=== PATIENT | male | born 1945 | race Two or more races ===

== ENCOUNTER 2017-09-08 11:56 | Emergency (ER) | payer MEDICARE ==
[~2017-09-08 11:56] MED LIST: ACE3 PO; ACY200 PO; AMLO-96 PO; ATOR40TA24 PO; ATOR40TA69 PO; CARV25TA78 PO; CHOL500025 PO; CODE118S5 PO; GLIP-152 PO; HCTZ25 PO; HYDR12.561 PO; IRBE75TA4 PO; KET10 PO; LOR5/325 PO; LOSA100T67 PO; LOSA25TA46 PO; MELO-207 PO; MET500 PO; PER PO; ROS10 PO; ROS4 PO; SIMV-42 PO; TRIA-20 PO; [UNRECOGNIZED DRUG - CODE] IM
--- NOTE | 2017-09-08 12:03 | ER Report ---
History and Physical Time Seen By MD: 12:03 HPI/ROS CHIEF COMPLAINT: Left-sided abdominal pain HISTORY OF PRESENT ILLNESS: This is a 72-year-old male who presents to the emergency department for left-sided abdominal pain. Patient states that about 15 -20 minutes prior to arrival he developed sudden onset of left-sided abdominal pain which, some shortness of breath, diaphoresis. Patient describes the pain as a "burning" sort of pain. Patient also states that now he's developed a little bit of a headache, nausea no vomiting. Patient denies any strenuous activity, patient denies having any pain like this before. The pain also wraps around to the left flank. Patient denies any recent aches, chills, chest pain, rashes. Patient does state that he is currently taking prednisone for a muscle strain. REVIEW OF SYSTEMS: Constitutional: No fever, no chills. Eyes: No discharge. ENT: No sore throat. Cardiovascular: As above. Respiratory: As above. Gastrointestinal: As above. Genitourinary: No hematuria. Musculoskeletal: No back pain. Skin: No rashes. Neurological: As above. Allergies: Coded Allergies: No Known Drug Allergies (Verified , 03/06/15) Home Meds Active Scripts Atorvastatin Calcium (LIPITOR) 40 Mg Tablet, 1 TAB PO QDAY, #90 TAB 1 Refill Prov:CAREN LEDESMA MD 07/14/15 Hydrochlorothiazide (HYDROCHLOROTHIAZIDE) 12.5 Mg Tablet, 1 TAB PO QDAY, #90 TAB 1 Refill Prov:CAREN LEDESMA MD 05/11/15 Reported Medications Cyanocobalamin (Vitamin B-12) (B-12) 1,000 Mcg/Ml Drops, 1000 MCG IM monthly, MCG 05/30/16 Cholecalciferol (Vitamin D3) (VITAMIN D3) 5,000 Unit Tablet, 2 TAB PO DAILY 05/23/16 Losartan Potassium (LOSARTAN POTASSIUM) 100 Mg Tablet, 1 TAB PO QDAY, TAB 04/14/15 Glipizide (GLIPIZIDE) 5 Mg Tablet, 5 MG PO DAILY 03/06/15 Carvedilol (CARVEDILOL) 25 Mg Tablet, 25 MG PO BID, #10 TAB 03/06/15 Metformin Hcl (Glucophage) 500 Mg Tab, 500 MG PO BID, 0 Refills 06/05/10 Discontinued Scripts Meloxicam (MELOXICAM) 15 Mg Tablet, 7.5 MG PO QDAY, #0 TAB Prov:CAREN LEDESMA MD 04/12/16 Past Medical/Surgical History Patient has a past medical and surgical history of hypercholesterolemia, hypertension, obstructive sleep apnea, pulmonary embolus secondary to foot surgery, cholecystectomy, arthritis, foot fracture, wears glasses, type II diabetes, colonoscopy, neck and back surgery, bilateral rotator cuff surgery, back surgery 2. Hx Smoking: Yes Smoking Status: Former Smoker Exposure to Second Hand Smoke?: No Hx Substance Use Disorder: No Hx Alcohol Use: Yes (OCC) Constitutional Vital Sign - Last 24 Hours 09/08/17 09/08/17 09/08/17 09/08/17 11:58 12:00 12:05 12:11 Temp 96.0 Pulse 49 47 Resp 20 26 B/P (MAP) 186/101 181/107 (131) 186/101 (129) Pulse Ox 99 99 O2 Delivery Room Air 09/08/17 09/08/17 09/08/17 09/08/17 12:13 12:15 12:26 12:30 Pulse 62 Resp 12 B/P (MAP) 181/90 (120) 182/75 (110) ???/??? (3615) 09/08/17 09/08/17 09/08/17 09/08/17 12:38 12:41 12:45 12:56 Pulse 58 60 Resp 28 12 B/P (MAP) 146/86 (106) 161/79 (106) Pulse Ox 92 97 09/08/17 09/08/17 09/08/17 09/08/17 13:00 13:23 13:28 13:29 Pulse 49 Resp 11 B/P (MAP) 153/78 (103) 98/49 (65) Pulse Ox 97 O2 Flow Rate 2.0 09/08/17 09/08/17 09/08/17 09/08/17 13:34 13:45 13:49 13:54 Pulse 52 50 55 Resp 11 10 16 B/P (MAP) 111/66 (81) Pulse Ox 97 98 98 09/08/17 09/08/17 09/08/17 09/08/17 14:00 14:02 14:09 14:15 Pulse 52 Resp 14 B/P (MAP) 109/67 (81) 118/72 (87) 112/70 (84) Pulse Ox 97 09/08/17 09/08/17 09/08/17 09/08/17 14:24 14:30 14:39 14:45 Pulse 53 54 Resp 16 11 B/P (MAP) 109/71 (84) 135/77 (96) Pulse Ox 98 98 09/08/17 09/08/17 09/08/17 09/08/17 14:54 15:00 15:03 15:08 Pulse 51 51 56 Resp 15 28 B/P (MAP) 113/73 (86) Pulse Ox 98 97 09/08/17 09/08/17 09/08/17 09/08/17 15:15 15:23 15:30 15:38 Pulse 53 55 Resp 10 10 B/P (MAP) 116/77 (90) 135/73 (93) Pulse Ox 97 97 09/08/17 09/08/17 09/08/17 09/08/17 15:45 15:53 16:00 16:08 Pulse 54 51 Resp 12 B/P (MAP) 121/79 (93) 133/72 (92) Pulse Ox 97 09/08/17 09/08/17 09/08/17 09/08/17 16:15 16:23 16:30 16:38 Pulse 49 ??? Resp 11 B/P (MAP) 117/87 (97) 129/74 (92) Pulse Ox 97 Intake and Output 09/08/17 09/08/17 09/09/17 14:59 22:59 06:59 Intake Total 500 ml Balance 500 ml Physical Exam General Appearance: The patient is alert, has no immediate need for airway protection and no signs of toxicity. Eyes: Pupils equal and round no pallor or injection. ENT, Mouth: Mucous membranes are moist. Respiratory: There are no retractions, lungs are clear to auscultation. Cardiovascular: Regular rate and rhythm, no murmurs, clicks or rubs. Gastrointestinal: Abdomen is soft, tenderness to the left upper quadrant, no masses, bowel sounds normal. No CVA tenderness. No abdominal bruits. No pulsations felt. Neurological: Alert and oriented 4. Moving all extremities. Following all commands. No focal neuro deficits. Cranial nerves II through XII intact. Skin: Warm and dry, no rashes. Musculoskeletal: Neck is supple non tender. Extremities are nontender, nonswollen and have full range of motion. DIFFERENTIAL DIAGNOSIS: After history and physical exam differential diagnosis was considered for chest pain including but not limited to myocardial ischemia, pericarditis pulmonary embolus, chest wall pain, pleural inflammation and pulmonary infectious causes.abdominal pain including but not limited to appendicitis, cholecystitis, gastritis and urinary tract infection. Medical Decision Making Data Points Result Diagram: 09/08/17 1210 09/08/17 1210 Laboratory Hematology Test 09/08/17 12:10 09/08/17 13:07 09/08/17 15:18 Red Blood Count 5.68 M/uL (4.00-5.60) Mean Corpuscular Volume 84.9 fL (80.0-96.0) Mean Corpuscular Hemoglobin 28.7 pg (26.0-33.0) Mean Corpuscular Hemoglobin Concent 33.8 g/dL (32.0-36.0) Red Cell Distribution Width 15.4 % (11.5-14.5) Mean Platelet Volume 7.6 fL (7.2-11.1) Neutrophils (%) (Auto) 59.0 % (39.4-72.5) Lymphocytes (%) (Auto) 31.8 % (17.6-49.6) Monocytes (%) (Auto) 8.0 % (4.1-12.4) Eosinophils (%) (Auto) 0.8 % (0.4-6.7) Basophils (%) (Auto) 0.4 % (0.3-1.4) Nucleated RBC Relative Count (auto) 0.1 /100WBC Neutrophils # (Auto) 5.5 K/uL (2.0-7.4) Lymphocytes # (Auto) 3.0 K/uL (1.3-3.6) Monocytes # (Auto) 0.7 K/uL (0.3-1.0) Eosinophils # (Auto) 0.1 K/uL (0.0-0.5) Basophils # (Auto) 0.0 K/uL (0.0-0.1) Nucleated RBC Absolute Count (auto) 0.01 K/uL D-Dimer Quantitative (PE/DVT) 0.65 ug/ml (0-0.50) Sodium Level 138 mmol/L (137-145) Potassium Level 3.9 mmol/L (3.5-5.0) Chloride Level 101 mmol/L (98-107) Carbon Dioxide Level 25 mmol/L (22-30) Blood Urea Nitrogen 27 mg/dl (9-21) Creatinine 1.40 mg/dl (0.66-1.25) Glomerular Filtration Rate Calc 50.0 Random Glucose 115 mg/dl (75-110) Calcium Level 10.0 mg/dl (8.4-10.2) Total Bilirubin 0.5 mg/dl (0.2-1.3) Aspartate Amino Transf (AST/SGOT) 17 U/L (0-35) Alanine Aminotransferase (ALT/SGPT) 19 U/L (0-56) Alkaline Phosphatase 71 U/L (0-126) Total Protein 7.5 gm/dl (6.3-8.2) Albumin 4.0 g/dl (3.5-5.0) Urine Color Yellow Urine Clarity Clear Urine pH 6.0 pH (4.8-9.5) Urine Specific [place] 1.014 Urine Protein Negative mg/dL (NEGATIVE) Urine Glucose (UA) Negative mg/dL (NEGATIVE) Urine Ketones Negative mg/dL (NEGATIVE) Urine Blood Negative (NEGATIVE) Urine Nitrite Negative (NEGATIVE) Urine Bilirubin Negative (NEGATIVE) Urine Urobilinogen Negative mg/dL (0.2-1.9) Urine Leukocyte Esterase Negative (NEGATIVE) Urine RBC None /HPF (0-2/HPF) Urine WBC <1 /HPF (0-5/HPF) Urine Squamous Epithelial Cells Few /LPF (</=FEW) Urine Bacteria Negative /HPF (NONE-FEW) Urine Mucus None /HPF (NONE-FEW) Troponin I < 0.012 ng/ml Chemistry Test 09/08/17 12:10 09/08/17 13:07 09/08/17 15:18 White Blood Count 9.3 k/uL (4.5-11.0) Red Blood Count 5.68 M/uL (4.00-5.60) Hemoglobin 16.3 g/dL (14.0-18.0) Hematocrit 48.2 % (42.0-52.0) Mean Corpuscular Volume 84.9 fL (80.0-96.0) Mean Corpuscular Hemoglobin 28.7 pg (26.0-33.0) Mean Corpuscular Hemoglobin Concent 33.8 g/dL (32.0-36.0) Red Cell Distribution Width 15.4 % (11.5-14.5) Platelet Count 241 K/uL (150-450) Mean Platelet Volume 7.6 fL (7.2-11.1) Neutrophils (%) (Auto) 59.0 % (39.4-72.5) Lymphocytes (%) (Auto) 31.8 % (17.6-49.6) Monocytes (%) (Auto) 8.0 % (4.1-12.4) Eosinophils (%) (Auto) 0.8 % (0.4-6.7) Basophils (%) (Auto) 0.4 % (0.3-1.4) Nucleated RBC Relative Count (auto) 0.1 /100WBC Neutrophils # (Auto) 5.5 K/uL (2.0-7.4) Lymphocytes # (Auto) 3.0 K/uL (1.3-3.6) Monocytes # (Auto) 0.7 K/uL (0.3-1.0) Eosinophils # (Auto) 0.1 K/uL (0.0-0.5) Basophils # (Auto) 0.0 K/uL (0.0-0.1) Nucleated RBC Absolute Count (auto) 0.01 K/uL D-Dimer Quantitative (PE/DVT) 0.65 ug/ml (0-0.50) Glomerular Filtration Rate Calc 50.0 Calcium Level 10.0 mg/dl (8.4-10.2) Total Bilirubin 0.5 mg/dl (0.2-1.3) Aspartate Amino Transf (AST/SGOT) 17 U/L (0-35) Alanine Aminotransferase (ALT/SGPT) 19 U/L (0-56) Alkaline Phosphatase 71 U/L (0-126) Total Protein 7.5 gm/dl (6.3-8.2) Albumin 4.0 g/dl (3.5-5.0) Urine Color Yellow Urine Clarity Clear Urine pH 6.0 pH (4.8-9.5) Urine Specific [place] 1.014 Urine Protein Negative mg/dL (NEGATIVE) Urine Glucose (UA) Negative mg/dL (NEGATIVE) Urine Ketones Negative mg/dL (NEGATIVE) Urine Blood Negative (NEGATIVE) Urine Nitrite Negative (NEGATIVE) Urine Bilirubin Negative (NEGATIVE) Urine Urobilinogen Negative mg/dL (0.2-1.9) Urine Leukocyte Esterase Negative (NEGATIVE) Urine RBC None /HPF (0-2/HPF) Urine WBC <1 /HPF (0-5/HPF) Urine Squamous Epithelial Cells Few /LPF (</=FEW) Urine Bacteria Negative /HPF (NONE-FEW) Urine Mucus None /HPF (NONE-FEW) Troponin I < 0.012 ng/ml Coagulation Test 09/08/17 12:10 D-Dimer Quantitative (PE/DVT) 0.65 ug/ml Urinalysis Test 09/08/17 13:07 Urine Color Yellow Urine Clarity Clear Urine pH 6.0 pH (4.8-9.5) Urine Specific [place] 1.014 Urine Protein Negative mg/dL (NEGATIVE) Urine Glucose (UA) Negative mg/dL (NEGATIVE) Urine Ketones Negative mg/dL (NEGATIVE) Urine Blood Negative (NEGATIVE) Urine Nitrite Negative (NEGATIVE) Urine Bilirubin Negative (NEGATIVE) Urine Urobilinogen Negative mg/dL (0.2-1.9) Urine Leukocyte Esterase Negative (NEGATIVE) Urine RBC None /HPF (0-2/HPF) Urine WBC <1 /HPF (0-5/HPF) Urine Squamous Epithelial Cells Few /LPF (</=FEW) Urine Bacteria Negative /HPF (NONE-FEW) Urine Mucus None /HPF (NONE-FEW) EKG/Imaging EKG Interpretation 12 lead EKG: Time of EKG 1204. Rhythm: Sinus bradycardia, ventricular rate 47 BPM. [place]: normal QRS: normal ST segments: No ST depression or elevation identified. Poor T-wave progression. Questionable U wave in V2, V3. 12 lead EKG: Time of repeat EKG 1244. Rhythm: Sinus bradycardia, ventricular rate 53 BPM. With 4 beats of unifocal PVCs. [place]: normal QRS: normal ST segments: No ST depression or elevation identified. Repeat EKG showing PVCs, patient is asymptomatic, states feeling better. junctional rhythm. 12 lead EKG: Time of EKG 1529. Rhythm: Sinus bradycardia, ventricular rate 50 BPM. [place]: normal QRS: normal ST segments: No ST depression or elevation identified. Still see a questionable U wave in V2, V3. No wide complexes noted. Imaging Location: [facility] Patient: Kp Haider : 1945 Visit/Account:[id number] Date of Sevice: 09/08/2017 Chest with lateral, 2 views. HISTORY: Chest pain, previous smoker. COMPARISON: 06/05/2010. The heart and mediastinum are unremarkable. Pulmonary vessels are unremarkable. The lungs are clear. The pleural surfaces are unremarkable. No pneumothorax. Degenerative changes are present in the spine. Surgical clips are present in the right upper abdomen. Metal hardware is present in the right shoulder and cervical spine. IMPRESSION: No evidence of acute cardiopulmonary disease. Report Dictated By: Suresh Duong MD at 09/08/2017 12:44 PM Report E-Signed By: Suresh Duong MD at 09/08/2017 12:46 PM WSN:[id number] Location: [facility] Patient: Kp Haider : 1945 Visit/Account:[id number] Date of Sevice: 09/08/2017 Chest CTA scan with contrast and computer reconstructions, and CT scan of the abdomen and pelvis with contrast. HISTORY: Shortness of breath, elevated d-dimer. COMPARISON: Chest CT scan 03/06/2015. [address] images were obtained of the chest using 100 mL intravenous Isovue-370. 3-D SLAB MIP reconstruction images were obtained of the pulmonary arteries. [address] images were obtained of the abdomen and pelvis using intravenous contrast. No oral contrast. One of the following dose optimization techniques was utilized in the performance of this exam: Automated exposure control; adjustment of the mA and/or kV according to the patient's size ; or use of an iterative reconstruction technique. Specific details can be referenced in the facility's radiology CT exam operational policy. FINDINGS: The heart is mildly enlarged. The coronary arteries are calcified. The thoracic aorta is mildly calcified. No bulky hilar or mediastinal adenopathy. The central pulmonary arteries are slightly prominent. No filling defects are identified to suggest acute pulmonary embolism. A 1.9 cm bulla is present in the lateral aspect of the right lower lung. The lungs are otherwise clear. No pleural fluid. No pneumothorax. An aberrant right subclavian artery is unchanged. The liver and spleen are normal in size. Surgical clips are present in the gallbladder fossa. A 5 mm low-density lesion probably representing a cyst or hemangioma is present in the posterior aspect of the spleen. The bile ducts are unremarkable. The pancreas is normal in size. The kidneys and adrenal glands are normal in size. No hydronephrosis. A 4.7 cm simple cyst is present in the lateral aspect of the right kidney. A 1.6 cm cyst is present in the posterior aspect of the left kidney. The abdominal aorta is calcified. Unopacified bowel loops are scattered in the abdomen and pelvis. A few diverticula are scattered in the left colon. No abnormal pericolonic fluid collections. The appendix is not well-visualized. The prostate gland is enlarged and partially calcified measuring 5.2 cm in transverse diameter. The urinary bladder is incompletely distended. Degenerative changes are present in the spine. Metal hardware is present in the right shoulder. IMPRESSION: Negative for acute pulmonary embolism. Aortic and coronary atherosclerosis. Aberrant right subclavian artery. Mild cardiomegaly. Absent gallbladder. Minimal colonic diverticulosis. 5 mm splenic lesion probably representing a hemangioma or cyst. Bilateral renal cysts. Mild prostate enlargement. Mild emphysema. Results were discussed with NUBIA BARKSDALE at 09/08/2017 2:18 PM. Report Dictated By: Suresh Duong MD at 09/08/2017 2:01 PM Report E-Signed By: Suresh Duong MD at 09/08/2017 2:19 PM WSN:[id number] Chest CTA scan with contrast and computer reconstructions, and CT scan of the abdomen and pelvis with contrast. HISTORY: Shortness of breath, elevated d-dimer. COMPARISON: Chest CT scan 03/06/2015. [address] images were obtained of the chest using 100 mL intravenous Isovue-370. 3-D SLAB MIP reconstruction images were obtained of the pulmonary arteries. [address] images were obtained of the abdomen and pelvis using intravenous contrast. No oral contrast. One of the following dose optimization techniques was utilized in the performance of this exam: Automated exposure control; adjustment of the mA and/or kV according to the patient's size ; or use of an iterative reconstruction technique. Specific details can be referenced in the facility's radiology CT exam operational policy. FINDINGS: The heart is mildly enlarged. The coronary arteries are calcified. The thoracic aorta is mildly calcified. No bulky hilar or mediastinal adenopathy. The central pulmonary arteries are slightly prominent. No filling defects are identified to suggest acute pulmonary embolism. A 1.9 cm bulla is present in the lateral aspect of the right lower lung. The lungs are otherwise clear. No pleural fluid. No pneumothorax. An aberrant right subclavian artery is unchanged. The liver and spleen are normal in size. Surgical clips are present in the gallbladder fossa. A 5 mm low-density lesion probably representing a cyst or hemangioma is present in the posterior aspect of the spleen. The bile ducts are unremarkable. The pancreas is normal in size. The kidneys and adrenal glands are normal in size. No hydronephrosis. A 4.7 cm simple cyst is present in the lateral aspect of the right kidney. A 1.6 cm cyst is present in the posterior aspect of the left kidney. The abdominal aorta is calcified. Unopacified bowel loops are scattered in the abdomen and pelvis. A few diverticula are scattered in the left colon. No abnormal pericolonic fluid collections. The appendix is not well-visualized. The prostate gland is enlarged and partially calcified measuring 5.2 cm in transverse diameter. The urinary bladder is incompletely distended. Degenerative changes are present in the spine. Metal hardware is present in the right shoulder. IMPRESSION: Negative for acute pulmonary embolism. Aortic and coronary atherosclerosis. Aberrant right subclavian artery. Mild cardiomegaly. Absent gallbladder. Minimal colonic diverticulosis. 5 mm splenic lesion probably representing a hemangioma or cyst. Bilateral renal cysts. Mild prostate enlargement. Mild emphysema. Results were discussed with NUBIA BARKSDALE at 09/08/2017 2:18 PM. Report Dictated By: Suresh Duong MD at 09/08/2017 2:01 PM Report E-Signed By: Suresh Duong MD at 09/08/2017 2:19 PM WSN:[id number] ED Course/Re-evaluation Clinical Indication for ER IV: Hydration, IV Access ED Course The patient was admitted to room. A history and physical were obtained. Differential diagnoses were considered. An IV was started. 500 L normal saline bolus. 2. A CBC, CMP, troponin, d-dimer were obtained. CBC unremarkable, chemistry showing BUN 27 creatinine 1.4. Negative troponin. Two-view chest x- ray negative for any acute cardiopulmonary process. I did review the elevated d- dimer with the patient and his family and did tell him that the test is not specific to a pulmonary embolus however is elevated can indicate that there is a clot therefore I suggested we proceed with a CTA of the chest they were in agreement with this. The patient's CTA was negative for pulmonary embolus. As the patient was having left-sided abdominal pain I did a CT of the abdomen pelvis at the same time, it was noted that he has diverticulosis but no diverticulitis, does have a very large cyst on the right kidney which she is aware of. Patient also does have aortic and coronary atherosclerosis, mild cardiomegaly, a splenic lesion that is likely a hemangioma or a cyst. I did review these results with the patient and his family I also did repeat a troponin which was negative. Patient did have a long run of PVCs started during this time the patient was pain-free patient remained pain-free in the emergency department. The EKGs show no signs of ischemia, we did capture a run of PVCs, couplets of 4 on 1 EKG again the patient was asymptomatic. I did tell the patient that I don't have a clear explanation as to why he had the left upper quadrant pain however with his runs of PVCs we did elect to send him home on a Holter monitor and have him follow-up with cardiology this week. Patient does understand that if he has any recurrent discomfort or symptoms that are concerning that he is to return to the emergency department. The patient and family were in agreement with this plan of care and discharged home. Patient states he will follow up with either [facility]ology or the cardiology group in [place] or [facility]. Patient also states that his headache has completely resolved. 09/08/2017 12:50:27 pm the patient did have several runs of wide complex rhythms, patient at that time the wide complex runs was complaint free patient states that he is "feeling much better". 09/08/2017 1:48:08 pm patient continues to have intermittent wide-complex rhythms however the patient remains complaint free. 09/08/2017 2:47:28 pm I did update the patient on his lab studies as well as the CT of the chest and abdomen pelvis, I did tell him that no pulmonary embolus however he does have a larger heart noted on his CT he was aware of the cyst on his right kidney. I did tell him that there is some diverticulosis but no diverticulitis. We also discussed the repeat troponin and if that was negative then as long as he remains pain-free given with these changes and rhythms refills though he could go home with a Holter monitor following up with cardiology in the next 1-2 days. The patient was in agreement with this. 09/08/2017 3:44:55 pm patient remains pain-free at this time. Decision to Disposition Date: September 08, 2017 Decision to Disposition Time: 16:56 Depart Departure Latest Vital Signs Vital Signs Date Time Temp Pulse Resp B/P (MAP) Pulse Ox O2 Delivery O2 Flow Rate FiO2 09/08/17 16:38 ??? 09/08/17 16:30 129/74 (92) 09/08/17 16:23 11 97 09/08/17 13:28 2.0 09/08/17 11:58 96.0 Room Air Impression: Primary Impression: Left upper quadrant pain Additional Impression: PVC (premature ventricular contraction) Condition: Improved Disposition: HOME OR SELF-CARE Referrals: ANNITA BABB DO CARDIOLOGY Patient Instructions: Abdominal Pain (ED), Premature Ventricular Contractions ( ED) Additional Instructions: Drink plenty of water. Get plenty of rest. Follow up with Cardiology in 1-4 days. Follow up with your PCP as scheduled. Return to the ED for any other concerns or worsening symptoms. Wear Holter monitor as directed by cardiopulmonary. Problem Qualifiers NUBIA BARKSDALE ANIMAL [employer]UELTY INVESTIGATOR-BC September 08, 2017 12:02
[2017-09-08] MEDS ORDERED: fentaNYL CITR 100 MCG/2 ML AMP IVP ONE (12:10)
[2017-09-08] MEDS ORDERED: ASPIRIN 81 MG CHEW PO ONE (12:10)
[2017-09-08] MEDS ORDERED: ONDANSETRON 4 MG/2 ML VIAL IVP ONE (12:10)
[2017-09-08 12:19] LABS: PLATELET COUNT, AUTOMATED 241 K/uL (150-450)
[2017-09-08] MEDS ORDERED: NS(*) 0.9% 500 ML BAG 500 ML IV ONE ×2 (12:35→15:25)
--- NOTE | 2017-09-08 12:49 | RADIOLOGY IMAGING REPORT ---
FACILITY: [facility] [place] PATIENT NAME: Kp Haider : 1945 MR: [id number] V: [id number] EXAM DATE: ORDERING PHYSICIAN: NUBIA BARKSDALE TECHNOLOGIST: Location: [facility] [place] Patient: Kp Haider : 1945 Visit/Account:[id number] Date of Sevice: 09/08/2017 Chest with lateral, 2 views. HISTORY: Chest pain, previous smoker. COMPARISON: 06/05/2010. The heart and mediastinum are unremarkable. Pulmonary vessels are unremarkable. The lungs are clear . The pleural surfaces are unremarkable. No pneumothorax. Degenerative changes are present in the spi ne. Surgical clips are present in the right upper abdomen. Metal hardware is present in the right jb ulder and cervical spine. IMPRESSION: No evidence of acute cardiopulmonary disease. Report Dictated By: Suresh Duong MD at 09/08/2017 12:44 PM Report E-Signed By: Suresh Duong MD at 09/08/2017 12:46 PM WSN:[id number]
[2017-09-08] MEDS ORDERED: IOPAMIDOL 76% 100 ML INFUS BTL 100 ML ONE (13:09)
--- NOTE | 2017-09-08 14:24 | RADIOLOGY IMAGING REPORT ---
FACILITY: [facility] [place] PATIENT NAME: Kp Haider : 1945 MR: [id number] V: [id number] EXAM DATE: ORDERING PHYSICIAN: NUBIA BARKSDALE TECHNOLOGIST: Location: [facility] [place] Patient: Kp Haider : 1945 Visit/Account:[id number] Date of Sevice: 09/08/2017 Chest CTA scan with contrast and computer reconstructions, and CT scan of the abdomen and pelvis with contrast. HISTORY: Shortness of breath, elevated d-dimer. COMPARISON: Chest CT scan 03/06/2015. [address] images were obtained of the chest using 100 mL intravenous Isovue-370. 3-D SLAB M IP reconstruction images were obtained of the pulmonary arteries. [address] images were obt ained of the abdomen and pelvis using intravenous contrast. No oral contrast. One of the following do se optimization techniques was utilized in the performance of this exam: Automated exposure control; adjustment of the mA and/or kV according to the patient's size; or use of an iterative reconstructio n technique. Specific details can be referenced in the facility's radiology CT exam operational mary cy. FINDINGS: The heart is mildly enlarged. The coronary arteries are calcified. The thoracic aorta is mildly calci fied. No bulky hilar or mediastinal adenopathy. The central pulmonary arteries are slightly prominent . No filling defects are identified to suggest acute pulmonary embolism. A 1.9 cm bulla is present in the lateral aspect of the right lower lung. The lungs are otherwise clear. No pleural fluid. No pneu mothorax. An aberrant right subclavian artery is unchanged. The liver and spleen are normal in size. Surgical clips are present in the gallbladder fossa. A 5 mm low-density lesion probably representing a cyst or hemangioma is present in the posterior aspect of t he spleen. The bile ducts are unremarkable. The pancreas is normal in size. The kidneys and adrenal g lands are normal in size. No hydronephrosis. A 4.7 cm simple cyst is present in the lateral aspect of the right kidney. A 1.6 cm cyst is present in the posterior aspect of the left kidney. The abdominal aorta is calcified. Unopacified bowel loops are scattered in the abdomen and pelvis. A few diverticu la are scattered in the left colon. No abnormal pericolonic fluid collections. The appendix is not we ll-visualized. The prostate gland is enlarged and partially calcified measuring 5.2 cm in transverse diameter. The u rinary bladder is incompletely distended. Degenerative changes are present in the spine. Metal hardwa re is present in the right shoulder. IMPRESSION: Negative for acute pulmonary embolism. Aortic and coronary atherosclerosis. Aberrant right subclavian artery. Mild cardiomegaly. Absent gallbladder. Minimal colonic diverticulosis. 5 mm splenic lesion probably representing a hemangioma or cyst. Bilateral renal cysts. Mild prostate enlargement. Mild emphysema. Results were discussed with NUBIA BARKSDALE at 09/08/2017 2:18 PM. Report Dictated By: Suresh Duong MD at 09/08/2017 2:01 PM Report E-Signed By: Suresh Duong MD at 09/08/2017 2:19 PM WSN:[id number]
--- NOTE | 2017-09-08 14:24 | RADIOLOGY IMAGING REPORT ---
FACILITY: [facility] PATIENT NAME: Kp Haider : 1945 MR: [id number] V: [id number] EXAM DATE: ORDERING PHYSICIAN: NUBIA BARKSDALE TECHNOLOGIST: Location: [facility] Patient: Kp Haider : 1945 Visit/Account:[id number] Date of Sevice: 09/08/2017 Chest CTA scan with contrast and computer reconstructions, and CT scan of the abdomen and pelvis with contrast. HISTORY: Shortness of breath, elevated d-dimer. COMPARISON: Chest CT scan 03/06/2015. [address] images were obtained of the chest using 100 mL intravenous Isovue-370. 3-D SLAB M IP reconstruction images were obtained of the pulmonary arteries. [address] images were obt ained of the abdomen and pelvis using intravenous contrast. No oral contrast. One of the following do se optimization techniques was utilized in the performance of this exam: Automated exposure control; adjustment of the mA and/or kV according to the patient's size; or use of an iterative reconstructio n technique. Specific details can be referenced in the facility's radiology CT exam operational mary cy. FINDINGS: The heart is mildly enlarged. The coronary arteries are calcified. The thoracic aorta is mildly calci fied. No bulky hilar or mediastinal adenopathy. The central pulmonary arteries are slightly prominent . No filling defects are identified to suggest acute pulmonary embolism. A 1.9 cm bulla is present in the lateral aspect of the right lower lung. The lungs are otherwise clear. No pleural fluid. No pneu mothorax. An aberrant right subclavian artery is unchanged. The liver and spleen are normal in size. Surgical clips are present in the gallbladder fossa. A 5 mm low-density lesion probably representing a cyst or hemangioma is present in the posterior aspect of t he spleen. The bile ducts are unremarkable. The pancreas is normal in size. The kidneys and adrenal g lands are normal in size. No hydronephrosis. A 4.7 cm simple cyst is present in the lateral aspect of the right kidney. A 1.6 cm cyst is present in the posterior aspect of the left kidney. The abdominal aorta is calcified. Unopacified bowel loops are scattered in the abdomen and pelvis. A few diverticu la are scattered in the left colon. No abnormal pericolonic fluid collections. The appendix is not we ll-visualized. The prostate gland is enlarged and partially calcified measuring 5.2 cm in transverse diameter. The u rinary bladder is incompletely distended. Degenerative changes are present in the spine. Metal hardwa re is present in the right shoulder. IMPRESSION: Negative for acute pulmonary embolism. Aortic and coronary atherosclerosis. Aberrant right subclavian artery. Mild cardiomegaly. Absent gallbladder. Minimal colonic diverticulosis. 5 mm splenic lesion probably representing a hemangioma or cyst. Bilateral renal cysts. Mild prostate enlargement. Mild emphysema. Results were discussed with NUBIA BARKSDALE at 09/08/2017 2:18 PM. Report Dictated By: Suresh Duong MD at 09/08/2017 2:01 PM Report E-Signed By: Suresh Duong MD at 09/08/2017 2:19 PM WSN:[id number]
--- NOTE | 2017-09-08 14:50 | EKG ---
[place] [facility] [facility] [place] NAME: NEAL HAM : [id number] MR: [id number] V: [id number] EXAM DATE: ORDERING PHYSICIAN: NUBIA BARKSDALE TECHNOLOGIST: LOUISA Montaoñ Reason : CHEST PAIN Blood Pressure : / mmHG Vent. Rate : 047 BPM Atrial Rate : 047 BPM P-R Int : 168 ms QRS Dur : 074 ms QT Int : 402 ms P-R-T Axes : 010 038 -23 degrees QTc Int : 355 ms Marked sinus bradycardia Nonspecific T wave abnormality U waves are present Abnormal ECG No previous ECGs available Confirmed by JENNIFER GAONA ([id number]) on 09/09/2017 11:18:55 AM Referred By: Confirmed By:JENNIFER GAONA
--- NOTE | 2017-09-08 14:50 | EKG ---
FACILITY: [facility] PATIENT NAME: NEAL HAM : [id number] MR: [id number] V: [id number] EXAM DATE: ORDERING PHYSICIAN: NUBIA BARKSDALE TECHNOLOGIST: LOUISA Montaño Reason : REPEAT RHYTHM CHANGE Blood Pressure : / mmHG Vent. Rate : 053 BPM Atrial Rate : 042 BPM P-R Int : 184 ms QRS Dur : 070 ms QT Int : 400 ms P-R-T Axes : 000 015 -06 degrees QTc Int : 375 ms Marked sinus bradycardia with apparent short run of ventricular escape Nonspecific T wave findings U waves are present Abnormal ECG Confirmed by JENNIFER GAONA ([id number]) on 09/09/2017 11:20:33 AM Referred By: Confirmed By:JENNIFER GAONA
[2017-09-08 16:30] VITALS: BP 129/74
--- NOTE | 2017-09-08 18:34 | EKG ---
FACILITY: [facility] [place] PATIENT NAME: NEAL HAM : [id number] MR: [id number] V: [id number] EXAM DATE: ORDERING PHYSICIAN: NUBIA BARKSDALE TECHNOLOGIST: LOUISA Montaño Reason : REPEAT Blood Pressure : / mmHG Vent. Rate : 050 BPM Atrial Rate : 050 BPM P-R Int : 176 ms QRS Dur : 068 ms QT Int : 404 ms P-R-T Axes : 011 007 000 degrees QTc Int : 368 ms Sinus bradycardia Nonspecific T wave findings Artifact in several leads - repeat if needed Confirmed by JENNIFER GAONA ([id number]) on 09/09/2017 11:24:38 AM Referred By: Confirmed By:JENNIFER GAONA
--- NOTE | 2017-09-10 06:36 | RT HOLTER TEST ---
FACILITY: [facility] [place] [place] PATIENT NAME: NEAL HAM : [id number] MR: [id number] V: [id number] EXAM DATE: ORDERING PHYSICIAN: NUBIA BARKSDALE TECHNOLOGIST: GERMÁN Hook-up date: 2017-09-08 16:54:00 Duration: 24:08:00 Test Indications: ARRYTHMIAS Medications: UNKNOWN 95359 QRS complexes 8 Ventricular ectopics which represent <1 % of total QRS comp. 5776 Supraventricular ectopics which represent 6 % of total QRS comp. * Paced QRS complexes which represent % of total QRS comp. VENTRICULAR ECTOPY 8 Isolated 0 Bigeminal Cycles 0 Couplets 0 Runs 0 Beats in Runs * Beats LONGEST at * BPM at :: -- * Beats FASTEST at * BPM at :: -- SUPRAVENTRICULAR ECTOPY 5510 Isolated 108 Couplets 16 Runs 50 Beats in Runs 4 Beats LONGEST at 70 BPM at 06:15:02 2017-09-09 3 Beats FASTEST at 109 BPM at 13:19:33 2017-09-09 HEART RATES 37 MIN at 05:22:54 2017-09-09 59 AVG 98 MAX at 13:14:23 2017-09-09 LONGEST RR 1.728 secs at 06:15:05 2017-09-09 S-T LEVELS Channel 1 -12.800 mm MIN at 16:54:00 2017-09-08 -12.800 mm MAX at 16:54:00 2017-09-08 Channel 2 -12.800 mm MIN at 16:54:00 2017-09-08 -12.800 mm MAX at 16:54:00 2017-09-08 Channel 3 -12.800 mm MIN at 16:54:00 2017-09-08 -12.800 mm MAX at 16:54:00 2017-09-08 Frequent supraventricular ectopy with many couplets and several short runs of 3 to 4 beats of suprave ntricular tachycardia. Several episodes of what appears to be potential complete heartblock with ventricular escape rhythm o ccurring between 0100hrs and 0300hrs. Episodic T wave changes occurred throughout recording as well. Confirmed by JENNIFER GAONA ([id number]) on 09/10/2017 6:36:11 AM Referred By: HOLLEY Beckhamd By: JENNIFER GAONA
== END 2017-09-08 17:08 | disposition home or self-care (01) ==
LOC: ER 12:05
DX: I49.3 Ventricular premature depolarization (principal); K57.30 Diverticulosis of large intestine without perforation or abscess without bleeding; N28.1 Cyst of kidney, acquired; D73.89 Other diseases of spleen; N40.0 Benign prostatic hyperplasia without lower urinary tract symptoms; J43.9 Emphysema, unspecified
CPT/HCPCS: 36415; 71046; 71275; 74177; 81001; 84484; 85025; 85379; 93005; 93225; 96361; 96374; 96375; 99284; A9270; J2405; J3010; J7040; Q9967; 82040; 82247; 82310; 82374; 82435; 82565; 82947; 84075; 84132; 84155; 84295; 84450; 84460; 84520; 93226

== ENCOUNTER → 2017-09-25 | Outpatient (CLI) | payer MEDICARE | LOC: LAB 12:15 | PROVIDERS: ATTEND Specialist | DX: R97.20 Elevated prostate specific antigen [PSA] (principal) | CPT/HCPCS: 36415; 84153 ==

== ENCOUNTER 2018-06-16 07:45 | Outpatient (RCR) | payer MEDICARE ==
--- NOTE | 2018-03-25 22:40 | TOBIN CONSULT ---
EVENT DATE: March 25, 2018 CHIEF COMPLAINT Patient is referred to me by Dr. Cordon to discuss radiation therapy options for recently diagnosed prostate carcinoma. ONCOLOGY HISTORY/HISTORY OF PRESENT ILLNESS This is a 72-year-old gentleman who lives in [place] who was referred to me by Dr. Cordon to discuss radiation therapy options for newly diagnosed prostate carcinoma. According to the patient, his PSA has been monitored carefully over the last five to 10 years. In 2014, the PSA in the 3.7 range. However, the PSA bandar to 5.6 to 6.1 ng/mL over a two-year time frame, and the patient was advised to have further evaluation. The highest PSA was 7.8 listed in the office notes from Urology date 12/13/17. Patient had undergone a previous negative biopsy in 2013. Excellent notes accompany the patient from Urology. Patient was evaluated with a combination of MRI scan of the prostate, which was then followed by a fusion ultrasound prostate biopsy. The MRI scan was obtained in [place]. Biopsy was performed of the prostate on 02/12/18. A Clinchco 3 + 4 = 7, marked poorly differentiated adenocarcinoma of the prostate was appreciated in the transitional zone on the left side as well as 5% of the right lobe biopsy. Thirteen core biopsies were collected in total. The specimen was also sent for OncotypeDX genomic prostate score. This was listed as a 25, and the patient was labeled as an unfavorable intermediate risk from results of that study. Patient is here to discuss radiation therapy options at the request of his urologist. Presently, the patient denies any significant voiding dysfunction. He generally has a good stream both during the day and at night. No prior history of prostatitis. Patient denies any new or persistent bone pain. I did note that the patient had some atypical chest and abdominal pain earlier this year, and imaging was obtained in early 2018 at [facility]. Those images did include the prostate and pelvis. I did not see any lymphadenopathy on those studies. No signs of metastatic disease to bone. There was asymmetry of the seminal vesicles, however, with the left being considerably larger than the right. Prostate visibly appeared to be enlarged, but no gross extracapsular extension by that study. MEDICATIONS 1. Simvastatin 20 mg a day. 2. Carafate 1 g q. day. 3. Vitamin B12 shot monthly. 4. Meloxicam p.r.n. 5. Losartan 100 mg q. day. 6. Carvedilol 12.5 mg b.i.d. 7. Metformin 1000 mg b.i.d. 8. Glipizide 5 mg q. day. ALLERGIES None. PAST MEDICAL HISTORY 1. Prostate carcinoma. History listed above. 2. Type 2 diabetes. 3. DJD. 4. History of polio with right foot drop. 5. Hypertension. SURGICAL HISTORY 1. Shoulder replacement 2016. 2. Neck fusion remotely. 3. Foot surgery remotely. FAMILY HISTORY Notable for pancreatic carcinoma in patient's father. Otherwise unremarkable. SOCIAL HISTORY Patient is retired, lives in [place]. Three daughters, ages 39, 45, and 50. . He did smoke remotely over 50 years ago, but not recently. He recalls that he smoked cigarettes for perhaps four years. He is not sexually active at this time. Patient does drink one to two shots of whiskey on the weekends. REVIEW OF SYSTEMS No respiratory complaints. No chest pain or palpitations. He has experienced some type of abdominal distress in the past year. This sounds like reflux. He has seen a GI specialist in [place] and has undergone an EGD. He does have followup appointments with his GI specialist. No change in bowel habits or frequency. Denies any dysuria, dribbling, or significant nocturia. Generally gets up zero to one time at night. Weight loss of 10 pounds in the last six months. He states this is due to diminished appetite. He does have joint pain and stiffness. PHYSICAL EXAMINATION GENERAL: Pleasant, 72-year-old male, medium build. VITALS: BP 133/74, pulse 56, O2 sat 93% on room air. Weight 183. LYMPHATICS: No peripheral lymphadenopathy. LUNGS: Clear bilaterally. HEART: Sounds regular. No audible murmur. ABDOMEN: Soft. No gross organomegaly. RECTAL: A mildly enlarged prostate with palpable induration in the peripheral zones bilaterally. No asymmetry. No tenderness noted. EXTREMITIES: No edema or cyanosis. He does have a right foot drop with some muscle atrophy in the thighs related to prior polio. IMPRESSION This is a 72-year-old gentleman with recently diagnosed Alec 3 + 4 = 7, intermediate risk adenocarcinoma of the prostate with significant PSA elevation over the last two years requiring additional urologic workup, which has been performed by Dr. Cordon. Excellent records accompany the patient for the consultation today. PLAN Patient has been fully appraised of all options including watchful waiting, surgery, and radiation therapy. He is interested in pursuing the radiation therapy option. I reviewed the OncotypeDX results which have a predictive value of extracapsular extension of at least 22%. His estimated chances of tumor metastasis at 10 years would be 5% based on the genomic profile score. I would favor external beam radiation therapy with IMRT over prostate brachytherapy for this specific patient since he has bilobed Alec 7 tumor. I would favor progressive field reduction approach to 77 Gy over 43 fractions. Field reductions are performed at 50 Gy and 60 Gy at our center. The treatment would be delivered with IMRT with the cone beam CT to localize the prostate prior to treatment delivery daily. Progressive margin reduction technique would minimize adverse effects which include urinary urgency or frequency. Rectal bleeding should be under 3% with careful attention to treatment technique. Patient has good urinary function at this time, and I believe that his voiding function could be maintained. Per present NCCN guidelines, I would favor a six-month course of ADT in combination with the external beam radiotherapy for maximum therapeutic effect. There is at least a 5% increase in progression-free survival in several published randomized trials with that technique. The patient is fully agreeable to that program. I contacted Dr. Cordon today, and he will work the patient back into the OR schedule the next two weeks to place the OAR spacer material. The latter has been shown to diminish radiation proctitis, and material is safely reabsorbed over two to four months while in completion of therapy. Since we use a cone beam CT approach, we do not need any fiducials at this time. The patient will receive hormone therapy with either Lupron or Eligard through the urology office. I would plan on completing the radiation CT simulation targeting within five days of the OAR procedure. External beam radiotherapy could start within five to seven [address] simulation has been completed. I reviewed the patient's previous radiographic studies with him as well as the pathology report. I reviewed the up-to-date literature on the computer with the patient regarding the combination benefit of external beam radiotherapy with a brief course of ADT per present guidelines. All questions were answered to the patient's satisfaction, and he took extensive notes at the end of the conversation today. I put him in contact with our lead therapist, Apple, so she can communicate potential start dates with him as soon as possible. All questions were answered to his satisfaction over a 90-minute consultation today. I will follow the patient with Urology after the treatment course is completed. I would expect normalization of the PSA within 12 weeks with the combined treatment program. Thank you for expressed confidence in our [facility] Center. Please do not hesitate to contact me directly by phone or e-mail if there are any questions regarding the above recommendations. BRISEIDAD
[~2018-06-16 07:45] MED LIST changes: +AMLO-125 PO; -AMLO-96 PO; -LOSA100T67 PO; +LOSA100T75 PO
== END 2018-06-22 ==
LOC: RAON 07:45
PROVIDERS: ATTEND Radiology Radiation Oncology
DX: Z51.0 Encounter for antineoplastic radiation therapy (principal); C61 Malignant neoplasm of prostate; E11.9 Type 2 diabetes mellitus without complications; I10 Essential (primary) hypertension; M19.90 Unspecified osteoarthritis, unspecified site; Z86.12 Personal history of poliomyelitis; Z87.891 Personal history of nicotine dependence
CPT/HCPCS: 77280; 77290; 77300; 77301; 77336; 77338; 77385; G0463; 99202

== ENCOUNTER → 2018-06-23 | Outpatient (REF) | payer MEDICARE | LOC: ZZSENDIN 16:25 | PROVIDERS: ATTEND Family Medicine | DX: R10.13 Epigastric pain (principal) | CPT/HCPCS: 82040; 82247; 82310; 82374; 82435; 82565; 82947; 83690; 84075; 84132; 84155; 84295; 84450; 84460; 84520 ==

== ENCOUNTER → 2018-06-27 | Outpatient (CLI) | payer MEDICARE ==
[~2018-06-27] MED LIST changes: +IOPAMIDOL 76% 100 ML INFUS BTL 100 ML ONE
--- NOTE | 2018-06-27 09:56 | RADIOLOGY IMAGING REPORT ---
FACILITY: [facility] [place] PATIENT NAME: Kp Haider : 1945 MR: [id number] V: [id number] EXAM DATE: ORDERING PHYSICIAN: ANNITA BABB TECHNOLOGIST: Location: [facility] [place] Patient: Kp Haider : 1945 Visit/Account:[id number] Date of Sevice: 06/27/2018 CT ABDOMEN PELVIS W & W/O CONTRAST HISTORY: Epigastric pain, generalized abdomen pain and prostate cancer TECHNIQUE: Axial images acquired through the abdomen/pelvis both with and without IV contrast.. Annamarie nal and sagittal reformatting also performed.Dose Lowering Technique One of the following dose optimization techniques was utilized in the performance of this exam: Autom ated exposure control; adjustment of the mA and/or kV according to the patient's size; or use of an i terative reconstruction technique. Specific details can be referenced in the facility's radiology C T exam operational policy. CONTRAST: 85 mL Isovue-370 COMPARISON: September 08, 2017 FINDINGS: Visualized lung bases: There are minimal dependent changes in lower lung harrison.. Incompletely imag ed are coronary artery calcifications Hepatobiliary: There are postsurgical changes from a cholecystectomy Spleen: Accessory splenule . 5 mm hypodensity posterior inferior spleen remains stable Adrenals: Negative. Pancreas: Negative. Kidneys ureters and bladder: 4.5 cm cyst projecting from the lateral aspect the right kidney. There is a 1.4 cm cyst projecting from the posterior lateral left kidney. There are other small subcentime ter hypodensities in both kidneys likely representing additional cysts although too small to characte rize . There is moderate bladder wall thickening which may be related to underdistention with urine. This f inding is similar to the prior study Genitalia: Prostate gland contains coarse calcifications and is producing mild impingement on the fl oor the bladder GI: No evidence of bowel obstruction. There is mild thickening of the distal gastric antrum and duo denal bulb. This finding is slightly increased when compared to the prior study and given the clinic al history of epigastric pain could be related to infectious inflammatory process. Although less lik ivan neoplastic processes not entirely excluded. Endoscopy may be helpful Vessels/spaces/nodes: Negative. Bones/soft tissues: There extensive spondylotic changes of the visualized thoracolumbar spine . Ti ny umbilical hernia containing fat Additional findings: None pertinent. IMPRESSION: There is moderate bladder wall thickening which may be related to underdistention with urine however this finding is similar to the prior study Bilateral renal cysts Minimal dependent changes in lower lung harrison There is mild thickening the distal gastric antrum and duodenal bulb. This appears slightly more pro minent when compared to the prior study and could represent an acute infectious/inflammatory process given the history of epigastric pain. Although less likely neoplastic processes not entirely exclude d. Endoscopy may be helpful for further evaluation Additional chronic findings as described Report Dictated By: Terra Kitchen MD at 06/27/2018 9:31 AM Report E-Signed By: Terra Kitchen MD at 06/27/2018 9:52 AM [email or web address]
== END ==
LOC: CT 04:29
PROVIDERS: ATTEND Family Medicine
DX: M47.815 Spondylosis without myelopathy or radiculopathy, thoracolumbar region (principal); K42.0 Umbilical hernia with obstruction, without gangrene; N40.1 Benign prostatic hyperplasia with lower urinary tract symptoms; K31.89 Other diseases of stomach and duodenum
CPT/HCPCS: 74178; Q9967

== ENCOUNTER 2018-09-09 10:00 | Outpatient (RCR) | payer MEDICARE ==
[2018-07-07 09:44] VITALS: BP 150/82
[~2018-09-09 10:00] MED LIST changes: -IOPAMIDOL 76% 100 ML INFUS BTL 100 ML ONE; -ROS10 PO; +ROSU10TA PO
[2018-09-09 10:01] VITALS: BP 139/85
--- NOTE | 2018-09-09 11:47 | ONCOLOGY FOLLOW UP NOTE ---
EVENT DATE: September 09, 2018 CHIEF COMPLAINT/REASON FOR VISIT Patient is here for his first post-treatment followup evaluation. Known history of prostate carcinoma. Patient treated with IMRT external beam radiotherapy with one Lupron injection on April 02, 2018 of 2.5 mg IM. Patient elects not to receive further hormone therapy due to its adverse effects on sexual function. ONCOLOGY HISTORY 1. 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 Tumor located in the transitional zone on the left side and 5% of the right lobe biopsy. Oncotype DX genomic prostate score was 25, giving him an unfavorable intermediate risk category. 2. Highest PSA in 2018 was 7.8 ng/mL. 3. Patient treated with external beam radiotherapy, 5040 cGy in 28 fractions, boost x2 with progressive field reductions to 7740 cGy and 43 total treatments. Treatment started April 18, 2018, completed April 15, 2019. 4. Status post single injection of Lupron through Dr. Morales's office. Received the injection on April 02, 2018. INTERVAL HISTORY Mr. Haider was seen back in the Oncology Clinic for followup appointment. Overall, he seems to be doing well. Voiding function has returned to normal. He generally does not get up at night. He can drive for three hours before having to stop. Denies any dysuria. No leakage. Patient denies any bowel complaints or changes. He does have some diffuse arthritic pain in his hands and other joints. The latter is managed by Dr. Wiggins as well as his type 2 diabetes and hypertension. Patient did have a PSA following treatment on July 07, 2018, which was 0.0 ng/mL. The patient states the only thing that bothers him is the lack of sexual drive. I told him in general this will recover after the hormone therapy is fully worn out of the system, which is around the sixth month time-frame. I told him we could do some laboratory parameters to see where he is at with that juncture. The patient does not have any hot flashes from the hormone therapy but he actually never did even back in April or May. MEDICATIONS 1. Metformin 500 mg p.o. b.i.d. 2. Carvedilol 25 mg p.o. b.i.d. 3. Glipizide 5 mg p.o. daily. 4. Losartan 1 tab p.o. q.d. 5. Cyanocobalamin 1000 mcg IM monthly. ALLERGIES None. PAST MEDICAL HISTORY 1. Prostate carcinoma. History listed above. 2. Type 2 diabetes. 3. DJD. 4. History of polio with right foot drop. 5. Hypertension. SURGICAL HISTORY 1. Shoulder replacement 2016. 2. Neck fusion remotely. 3. Foot surgery remotely. FAMILY HISTORY Notable for pancreatic carcinoma in patient's father. Otherwise unremarkable. SOCIAL HISTORY Patient is retired, lives in [place]. Three daughters, ages 39, 45, and 50. . He did smoke remotely over 50 years ago, but not recently. He recalls that he smoked cigarettes for perhaps four years. He is not sexually active at this time. Patient does drink one to two shots of whiskey on the weekends. REVIEW OF SYSTEMS Notable for some diffuse arthritic pain. He states he does have some longstanding difficulty remembering items and has longstanding issues with decrease in hearing. From a voiding standpoint, his AUA score was 8. No dysuria. PHYSICAL EXAMINATION GENERAL: Pleasant, 73-year-old male, medium build. VITALS: Weight 185, BP 591712, pulse 55, O2 sat 92% on room air. LUNGS: Clear bilaterally. HEART: Regular with occasional ectopy. ABDOMEN: Soft. No gross organomegaly. No peripheral lymphadenopathy. EXTREMITIES: No edema or cyanosis. RECTAL: Deferred. This will generally be performed at the 12 month interval. IMPRESSION Overall, the patient is doing well and recovering on schedule from the treatment program. His PSA is well suppressed to 0.0 with combined xrt/adt. Due to his concern regarding return of sexual function, my Plan is to draw blood work the last week of September including PSA, total testosterone, CBC and CMP. I will see him back in the clinic the following week. I also instructed him that he may need Cialis or Levitra, etc. in the future and recovery may be delayed until he is 3-6 months from his last lupron injection. However, first the hormone therapy would need to be out of his system and we could find out one way or the other with total testosterone. I will have him meet with his urologist if he does not have moderate to complete recovery by then or sooner per schedule. We notified the Urology office of patients desire not to receive the second Lupron injection per original plan/recommendation. All questions were answered to his satisfaction over a 30-minute followup appointment today. KRISTIN
== END 2018-10-02 ==
LOC: RAON 10:00
PROVIDERS: ATTEND Radiology Radiation Oncology
DX: Z85.46 Personal history of malignant neoplasm of prostate (principal); Z92.3 Personal history of irradiation; Z87.891 Personal history of nicotine dependence
CPT/HCPCS: 36415; 84153; G0463; 99212

== ENCOUNTER → 2018-10-27 | Outpatient (CLI) | payer MEDICARE ==
--- NOTE | 2018-10-27 11:46 | RADIOLOGY IMAGING REPORT ---
FACILITY: [facility] PATIENT NAME: Kp Haider : 1945 MR: [id number] V: [id number] EXAM DATE: ORDERING PHYSICIAN: ANNITA BABB TECHNOLOGIST: Location: [facility] [place] Patient: Kp Haider : 1945 Visit/Account:[id number] Date of Sevice: 10/27/2018 Single view chest with left ribs INDICATION: [place] something pop working in the garden couple weeks ago.. COMPARISON: X-ray examination of the chest with right ribs March 06, 2015. CT examination August 2017 . FINDINGS: Cardiac silhouette is stable, within normal limits. Lungs are clear. No evidence of effus ion or pneumothorax. Dedicated oblique images of the left ribs demonstrate a nondisplaced fracture anterior left 10th rib. IMPRESSION: 1. Nondisplaced fracture anterior left 10th rib. Clear lungs without effusion or pneumothorax. Report Dictated By: Carlos Jim MD at 10/27/2018 11:38 AM Report E-Signed By: Carlos Jim MD at 10/27/2018 11:40 AM WSN:[id number]
== END ==
LOC: RAD 11:06
PROVIDERS: ATTEND Family Medicine
DX: S22.32XA Fracture of one rib, left side, initial encounter for closed fracture (principal)
CPT/HCPCS: 71100